=== PATIENT | female | born 1950 | race Caucasian/White ===

== ENCOUNTER 2018-02-02 21:20 | Emergency (ER) | payer MEDICARE, OTHER ==
[~2018-02-02] VITALS: Ht 144.8 cm; Wt 68.2 kg
[~2018-02-02 21:20] MED LIST: ATOR10TA84 PO; HYDR25TA PO; METF500T7 PO
[2018-02-02] MEDS ORDERED: METF850T2 PO (21:47)
[2018-02-02] MEDS ORDERED: ASPI81TA42 PO (21:47)
[2018-02-02 21:53] LABS: GLUCOSE,POINT OF CARE 102 MG/DL (70-110)
[2018-02-03] MEDS ORDERED: AMOX TR/POT CLAV 500 MG/125 MG TABLET PO ONE (00:15)
[2018-02-03] MEDS ORDERED: PERTUSS(ACELL),DIPH,TET VAC/PF 0.5 ML VIAL IM ONE (00:15)
[2018-02-03] MEDS ORDERED: IBUPROFEN 600 MG TABLET PO ONE (00:15)
[2018-02-03] MEDS ORDERED: SODIUM CHLORIDE 0.9% 250 ML IRRIG SOLUTION BOTTLE IRRIG ONE (00:15)
[2018-02-03 00:34] VITALS: BP 110/66
== END 2018-02-03 00:42 | disposition home or self-care (01) ==
LOC: EMS 21:22
DX: S61.452A Open bite of left hand, initial encounter (principal); E11.9 Type 2 diabetes mellitus without complications; I10 Essential (primary) hypertension; E78.00 Pure hypercholesterolemia, unspecified; Z79.899 Other long term (current) drug therapy; Z79.82 Long term (current) use of aspirin; W54.0XXA Bitten by dog, initial encounter; Y93.89 Activity, other specified; Y92.098 Other place in other non-institutional residence as the place of occurrence of the external cause; Y99.8 Other external cause status
CPT/HCPCS: 90471; 90715; 96372; 99283

== ENCOUNTER 2020-02-01 00:26 | Emergency (ER) | payer MEDICARE, MEDICAID ==
[~2020-02-01] VITALS: Ht 149.9 cm; Wt 70.5 kg
[~2020-02-01 00:26] MED LIST changes: +ASPI81TA40 PO; +HYDR-1475 PO; -HYDR25TA PO; +METF-445 PO; -METF500T7 PO
[2020-02-01 01:16] LABS: GLUCOSE,POINT OF CARE 177 MG/DL (70-110)
[2020-02-01 01:38] LABS: APPEARANCE,URINE CLEAR (CLEAR); BILIRUBIN,URINE NEGATIVE (NEGATIVE); GLUCOSE, URINE (UA) NEGATIVE (NEGATIVE); KETONES,URINE NEGATIVE (NEGATIVE); LEUKOCYTE ESTERASE ,URINE NEGATIVE (NEGATIVE); NITRATE,URINE NEGATIVE (NEGATIVE); OCCULT BLOOD,URINE NEGATIVE (NEGATIVE); PROTEIN,URINE NEGATIVE (NEGATIVE); UROBILINOGEN,URINE 0.2 mg/dL (<=1.0)
[2020-02-01 03:53] VITALS: BP 132/62
== END 2020-02-01 05:14 | disposition home or self-care (01) ==
LOC: EMS 00:26
DX: R30.0 Dysuria (principal); R35.0 Frequency of micturition; R39.15 Urgency of urination; E11.9 Type 2 diabetes mellitus without complications; E78.00 Pure hypercholesterolemia, unspecified; I10 Essential (primary) hypertension; Z79.82 Long term (current) use of aspirin; Z79.84 Long term (current) use of oral hypoglycemic drugs